=== PATIENT | male | born 1970 | race American Indian/Alaskan Native ===

== ENCOUNTER 2022-12-01 10:31 | Day surgery (SDC) | payer OTHER ==
[~2022-12-01] VITALS: Ht 165.1 cm; Wt 112.9 kg
[~2022-12-01 10:31] MED LIST: NS 1,000 ML IV ONE; OLME40TA PO
[2022-12-01] MEDS ORDERED: propofoL 200 MG/20 ML VIAL As Ordered ONE ×4 (11:42→12:14)
[2022-12-01 12:28] VITALS: TEMP 96.5
[2022-12-01 13:41] VITALS: BP 133/66; O2SAT 98
== END 2022-12-01 13:43 | disposition home or self-care (01) ==
LOC: M OPP 10:31
PROVIDERS: ATTEND Internal Medicine Gastroenterology
DX: C18.7 Malignant neoplasm of sigmoid colon (principal); K63.5 Polyp of colon; K57.30 Diverticulosis of large intestine without perforation or abscess without bleeding; K64.8 Other hemorrhoids; K56.690 Other partial intestinal obstruction; K92.1 Melena

== ENCOUNTER → 2022-12-15 | Outpatient (CLI) | payer OTHER ==
[~2022-12-15] MED LIST changes: +GASTROGRAFIN SOLUTION 30ML As Ordered ONE; +ISOVUE-370 76% 100ML VIAL As Ordered ONE; -NS 1,000 ML IV ONE
== END ==
LOC: M RAD 13:18
PROVIDERS: ATTEND Internal Medicine Gastroenterology
DX: C18.7 Malignant neoplasm of sigmoid colon (principal); C18.2 Malignant neoplasm of ascending colon
CPT/HCPCS: 71260; 74177; Q9963; Q9967